=== PATIENT | female | born 1945 | race Caucasian/White ===

== ENCOUNTER → 2021-07-14 | Outpatient (CLI) | payer MEDICARE, BC ==
[~2021-07-14] MED LIST: barium sulfate 450ml oral suspension ONE
== END | disposition home or self-care (01) ==
LOC: RAD 11:30
PROVIDERS: ATTEND Family Medicine
DX: R13.10 Dysphagia, unspecified (principal); K22.4 Dyskinesia of esophagus
CPT/HCPCS: 74220